=== PATIENT | male | born 1950 | race Caucasian/White ===

== ENCOUNTER → 2017-02-22 | Outpatient (CLI) | payer OTHER, MEDICARE ==
[~2017-02-22] MED LIST: ASPIRIN81 M2 PO; FLOMAX0.4 MG PO; HYDROCODONE-AP1 EAC6 PO; IBUPROFEN 400400 M2 PO; LISINOPRIL10 MG PO; PRAVACHOL40 MG PO; URINOZINC PROS1 EACH PO
--- NOTE | ~2017-02-22 | EKG ---
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 : 1950 Requested By: Mehdi Roque Order Number: [id number] MD: Hasmukh Koenig Measurements Intervals Ashley Rate: 67 P: 63 SD: 34 QRS: -37 QRSD: 98 T: 25 QT: 408 QTc: 431 Interpretive Statements Sinus rhythm Left axis deviation Early R-wave progression Baseline wander in lead(s) V5 Compared to ECG 08/31/2005 12:15:29 No significant change was found Electronically Signed On 02-22-2017 9:11:30 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
== END | disposition home or self-care (01) ==
LOC: LITH 07:27
DX: N20.0 Calculus of kidney (principal)